=== PATIENT | male | born 1940 | race Caucasian/White ===

== ENCOUNTER 2016-11-16 21:40 | Emergency (ER) | payer MEDICARE ==
[~2016-11-16] VITALS: Ht 175.3 cm; Wt 68.0 kg
[~2016-11-16 21:40] MED LIST: ASPI325T PO; HYDR-2768 PO; SIMV20 PO; TELM40 PO
[2016-11-16 21:44] VITALS: BP 183/88; PULSE 73; RESP 15; TEMP 98.6; O2SAT 99
[2016-11-17] MEDS ORDERED: ASPI81CH CHEW (00:33)
[2016-11-17] MEDS ORDERED: ZOCO20TA PO (00:33)
[2016-11-17] MEDS ORDERED: HYDR12.57 PO (00:33)
[2016-11-17] MEDS ORDERED: TELM40 PO (00:33)
--- NOTE | 2016-11-17 00:59 | PD ---
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 Presents to the had edema around his eyelids. No erythema redness. No significant pain. He is taking clindamycin and pain medicine but stopped them if he developed the swelling. No other rash. No other complaints. History Past Medical History Medical History: Denies Significant Hx Influenza Vaccination: Yes Social History Alcohol Use: Yes (1 glass wine daily) Tobacco Use: No (STOPPED 30 YRS Ago) Allergies-Medications (Allergen,Severity, Reaction): Coded Allergies: Penicillin (Verified Allergy, Mild, "BOILS", 11/16/16) Reported Meds & Prescriptions Reported Meds & Active Scripts Active Reported Hydrochlorothiazide 12.5 Mg Cap 12.5 Mg PO DAILY Zocor (Simvastatin) 20 Mg Tab 20 Mg PO HS Micardis (Telmisartan) 40 Mg Tab 40 Mg PO DAILY Aspirin 81 Mg Chew 162 Mg CHEW DAILY Review of Systems Except as stated in HPI: all other systems reviewed are Neg Physical Exam Narrative GENERAL: Well-appearing 76 year-old woman, no acute distress. SKIN: Warm and dry. HEAD: Normocephalic. There is a large wound on the top of his head. There is a little bit trickling bleeding. There appeared to resect a large area skin, placed Gelfoam dressings, and use sutures to pull the skin together. Bleeding was controlled with just direct pressure. Bandage was applied. EYES: Pupils equal and round. No scleral icterus. No injection or drainage. Moderate periorbital edema. Is no erythema redness or tenderness, just watery edema. ENT: No nasal bleeding or discharge. Mucous membranes pink and moist. NECK: Trachea midline. No JVD. CARDIOVASCULAR: Regular rate and rhythm. No murmur appreciated. RESPIRATORY: No accessory muscle use. Clear to auscultation. Breath sounds equal bilaterally. GASTROINTESTINAL: Abdomen soft, non-tender, nondistended. Hepatic and splenic margins not palpable. MUSCULOSKELETAL: No obvious deformities. Data Data Last Documented VS Vital Signs Date Time Temp Pulse Resp B/P Pulse Ox O2 Delivery O2 Flow Rate FiO2 11/16/16 22:06 20 11/16/16 21:44 98.6 73 183/88 99 Room Air [facility] Medical Decision Making Medical Screen Exam Complete: Yes Emergency Medical Condition: Yes Differential Diagnosis Edema, infection, allergic reaction, other Narrative Course Medical decision making the progress 76 old man with reactive edema around his eyelids. I think this is just from the surgery that he had above it. The sclera evidence of erythema redness or other systemic allergic reaction symptoms. Is no evidence of infection. Recommend ice, supportive treatment. Diagnosis Primary Impression: Facial edema Additional Instructions: Continue current medications. Follow up with your primary doctor in the next 2-4 days. Return to the emergency department for any new or worsening symptoms. Med/Other Pt SpecificInfo: No Change to Meds Disposition: 01 DISCHARGE HOME Condition: Stable Zheng Hernandez MD Nov 17, 2016 00:59
== END 2016-11-17 01:20 | disposition home or self-care (01) ==
LOC: NEPE 21:40
DX: R60.9 Edema, unspecified (principal); R22.0 Localized swelling, mass and lump, head
CPT/HCPCS: 99283

== ENCOUNTER → 2016-12-20 | Day surgery (SDC) | payer MEDICARE ==
[~2016-12-20] MED LIST changes: -ASPI325T PO; +ASPI81CH CHEW; +CLINDAMYCIN PHOS 900 MG/6 ML VIAL ONE; -HYDR-2768 PO; +HYDR12.57 PO; +LACTATED RINGER'S 1000 ML INJ 1,000 ML ONE; +LIDOCAINE 1%/EPINEPHrine 1:100,000 SOLN 30 ML VIAL ONE; +MIDAZOLAM HCL 2 MG/2 ML VIAL ONE; +NEOMYCIN/POLYMYXIN/BACITRACIN OINT 15 GM TUBE ONE; +NS 100 ML (PAB BAG) 100 ML IV ONE; +ONDANSETRON HCL 4 MG/2 ML VIAL IV PUSH ONE; +PROPOFOL 200 MG/20 ML AMP IV ONE; -SIMV20 PO; +ZOCO20TA PO
--- NOTE | 2016-12-20 17:29 | MP ---
cc: DENAE MENA DATE OF SURGERY 12/20/2016 PREOPERATIVE DIAGNOSIS Necrotic periosteum with midline frontal scalp wound 6 x 5 cm. POSTOPERATIVE DIAGNOSIS Necrotic periosteum with midline frontal scalp wound 6 x 5 cm. OPERATION Debridement scalp wound and decortication of skull bone SURGEON Dr. 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 The periosteum is necrotic and black and he was referred to me for further care. The patient was explained the process of removing the outer layer of skull bone letting the granulation tissue buildup and then skin graft as opposed to doing large rotation flaps. He has agreed to go ahead with the simpler technique. He understands the possibility of multiple surgeries and complications including infection, etc. PROCEDURE IN DETAIL The patient was brought to the operating room, was given supine position. Anesthesia was started. IV antibiotic had been given. Prep and drape was done. Time-out was called and completed. The skin and soft tissue surrounding the open wound were tumesced with lidocaine 1% with epi. The skin edge was excised. The entire periosteum was sharply excised with the knife clearing the bone completely. A [place] 5-mm karin was used with constant irrigation to cool down the karin taking down the entire 2/3 of the outer table of the skull until the capillary bleeding started in all the areas. The area was washed away, bone dust was removed. Xeroform and sterile dressing was applied. The patient remained stable. Intraoperative blood loss less than 5 mL. No complications. signed, not fully reviewed MD PIPER Sumner/ /8:42 AM /5:20 PM [id number]
== END | disposition home or self-care (01) ==
LOC: ESDC 06:49
PROVIDERS: ATTEND Plastic Surgery
DX: S01.00XA Unspecified open wound of scalp, initial encounter (principal); M95.2 Other acquired deformity of head
CPT/HCPCS: 00210; 61500; J2250; J2405; J3010; J7120